=== PATIENT | female | born 1940 | race Caucasian/White ===

== ENCOUNTER → 2017-10-20 | Outpatient (CLI) | payer MEDICARE ==
[2017-10-20 17:30] LABS: HEMATOCRIT 39.3 % (36.0-47.0); HEMOGLOBIN 12.8 g/dl (12.0-16.0); MEAN CORPUSCULAR HEMOGLOBIN 29.8 pg (27.0-33.0); MEAN CORPUSCULAR HGB CONC 32.6 g/dl (32.0-36.5); MEAN CORPUSCULAR VOLUME 91.6 fl (80.0-96.0); PLATELET COUNT, AUTOMATED 329 10^3/uL (150-450); RED BLOOD COUNT 4.29 10^6/uL (4.00-5.40); RED CELL DISTRIBUTION WIDTH 13.5 % (11.5-14.5); WHITE BLOOD COUNT 6.9 10^3/uL (4.0-10.0)
[2017-10-20 17:58] LABS: ERYTHROCYTE SEDIMENTATION RATE 19 mm/hr (0-30)
[2017-10-20 18:14] LABS: C REACTIVE PROTEIN QUANTITATIV 0.41 MG/DL (0.00-0.30)
== END ==
LOC: M LAB 17:03
DX: H47.10 Unspecified papilledema (principal)
CPT/HCPCS: 86140

== ENCOUNTER → 2018-02-17 | Outpatient (REF) | payer MEDICARE ==
[2018-02-17 14:15] LABS: C REACTIVE PROTEIN QUANTITATIV < 0.30 MG/DL (0.00-0.30)
[2018-02-17 14:29] LABS: ERYTHROCYTE SEDIMENTATION RATE 11 mm/hr (0-30)
== END ==
LOC: M LABNEURO 11:05
DX: M31.6 Other giant cell arteritis (principal)
CPT/HCPCS: 86140

== ENCOUNTER → 2018-05-31 | Outpatient (REF) | payer MEDICARE | LOC: M LAB REF 18:02 | DX: C44.622 Squamous cell carcinoma of skin of right upper limb, including shoulder (principal) | CPT/HCPCS: 88305 ==

== ENCOUNTER → 2018-07-25 | Outpatient (CLI) | payer MEDICARE ==
--- NOTE | 2018-07-27 10:36 | DEXA ---
AP SPINE L1 - L4 1.308 0.9 2.7 LT FEMUR TOTAL 0.843 -1.3 0.6 LT NECK 0.790 -1.8 0.3 RT FEMUR TOTAL 0.855 -1.2 0.7 RT NECK 0.742 -2.1 0.1 TOTAL BODY TOTAL OTHER COMMENTS: Normal bone densitometry of the spine. There is low bone density of the hips. The density of the spine has decreased 2.2% since the initial exam on 05/10/2000. The spine density has decreased 0.1% since the most recent exam on 07/19/2016. The density of the left hip has decreased 8.8% since the initial exam on 05/10/2000. The density of the left hip has decreased 3.0% since the most recent exam on 07/19/2016. The density of the right hip has decreased 7.6% since the initial exam on 05/10/2000. The density of the right hip has decreased 3.9% since the most recent exam on 07/19/2016. FOLLOW-UP: Recommendation for the next bone density exam: 2 years. STEFANY
== END ==
LOC: M WHC 12:42
PROVIDERS: ATTEND Internal Medicine Endocrinology, Diabetes & Metabolism
DX: M85.89 Other specified disorders of bone density and structure, multiple sites (principal)

== ENCOUNTER 2018-10-09 13:19 | Outpatient (CLI) | payer MEDICARE ==
[~2018-10-09] VITALS: Ht 167.6 cm; Wt 63.5 kg
[2018-10-09 13:40] VITALS: BP 150/74
[2018-10-09] MEDS ORDERED: ZOLEDRONIC ACID 5 MG in APPROPRIATE DILUENT 1 EA IV ONE (14:30)
[2018-10-09] MEDS ORDERED: VITA1CAP7 PO (14:40)
[2018-10-09] MEDS ORDERED: RANI1TAB6 PO (14:41)
[2018-10-09] MEDS ORDERED: LANS15CA PO (14:43)
[2018-10-09] MEDS ORDERED: ESTR3TA PO (14:44)
[2018-10-09] MEDS ORDERED: DOCU240C9 PO (14:46)
[2018-10-09] MEDS ORDERED: MIRA3350 PO (14:48)
[2018-10-09] MEDS ORDERED: PROB250C PO (14:49)
[2018-10-09] MEDS ORDERED: VITA10002 PO (14:50)
[2018-10-09] MEDS ORDERED: [UNRECOGNIZED DRUG - OTHER] PO (14:51)
[2018-10-09] MEDS ORDERED: FLAX100012 PO (14:52)
[2018-10-09] MEDS ORDERED: CALC600T60 PO (14:52)
[2018-10-09] MEDS ORDERED: BIOT5TAB3 PO (15:01)
[2018-10-09] MEDS ORDERED: ATOR1TAB19 PO (15:02)
[2018-10-09 15:30] VITALS: BP 166/81
== END 2018-10-09 15:30 | disposition home or self-care (01) ==
LOC: M INFU 13:19
PROVIDERS: ATTEND Internal Medicine Endocrinology, Diabetes & Metabolism
DX: M85.89 Other specified disorders of bone density and structure, multiple sites (principal)
CPT/HCPCS: 96365; J3489

== ENCOUNTER → 2020-08-05 | Outpatient (CLI) | payer MEDICARE ==
[~2020-08-05] MED LIST: ATOR1TAB19 PO; BIOT5TAB3 PO; CALC600T60 PO; CYAN100049 PO; D-3-50003 PO; DOCU240C9 PO; ESTR3TA PO; FLAX100012 PO; LANS15CA PO; MIRA3350 PO; PROB250C PO; RANI-397 PO; [UNRECOGNIZED DRUG - OTHER] PO
--- NOTE | 2020-08-05 12:00 | DEXAMM ---
INDICATION: M81.0 AGE RELATED OSTEOPOROSIS. COMPARISON: Comparison studies dated July 25, 2018, July 19, 2016, and May 10, 2000.. TECHNIQUE: Bone density was measured using dual-energy x-ray absorptionmetry (DEXA). FINDINGS: AP SPINE L1-L4 BMD 1.303 g/cm2 Young Adult T-Score 0.9 Age Matched Z-Score 2.7. LT FEMUR, TOTAL BMD 0.828 g/cm2 Young Adult T-Score -1.4 Age Matched Z-Score 0.3. LT NECK BMD 0.752 g/cm2 Young Adult T-Score -2.1 Age Matched Z-Score 0.1. RT FEMUR, TOTAL BMD 0.842 g/cm2 Young Adult T-Score -1.3 Age Matched Z-Score 0.7. RT NECK BMD 0.747 g/cm2 Young Adult T-Score -2.1 Age Matched Z-Score 0 point. IMPRESSION: There is normal bone density of the spine. There is low bone density of the left hip. There is low bone density of the right hip. The density of the spine has decreased 2.5% since the initial exam on May 10, 2000. The density of the spine decreased 0.4% since most recent exam on July 25, 2018. The density of the left hip has decreased 10.4% since initial exam on May 10, 2000. The density of the left hip has decreased 1.8% since most recent exam on July 25, 2018. The density of the right hip has decreased 9.0% since the initial exam on May 10, 2000. The density of the right hip has decreased 1.5% since the most recent exam on July 25, 2018. FOLLOW-UP: Recommendation for the next bone density exam: 2 years. <Electronically signed by Lorne Davies > 08/05/20 [id number]
== END ==
LOC: M WHC 10:46
PROVIDERS: ATTEND Internal Medicine Endocrinology, Diabetes & Metabolism
DX: M81.0 Age-related osteoporosis without current pathological fracture (principal)

== ENCOUNTER 2020-09-25 15:04 | Outpatient (CLI) | payer MEDICARE ==
[~2020-09-25] VITALS: Ht 167.6 cm; Wt 61.3 kg
[~2020-09-25 15:04] MED LIST changes: +ZOLEDRONIC ACID 5 MG in IV 1 EA IV ONE
[2020-09-25 15:10] VITALS: BP 173/86
[2020-09-25] MEDS ORDERED: ZOLEDRONIC ACID 5 MG in IV 1 EA IV ONE (15:30)
[2020-09-25] MEDS ORDERED: PANT20TA6 PO (15:37)
[2020-09-25] MEDS ORDERED: AREDS PO (15:41)
[2020-09-25 16:00] VITALS: BP 168/88
== END 2020-09-25 16:00 | disposition home or self-care (01) ==
LOC: M INFU 15:04
PROVIDERS: ATTEND Internal Medicine Endocrinology, Diabetes & Metabolism
DX: M81.0 Age-related osteoporosis without current pathological fracture (principal); Z88.1 Allergy status to other antibiotic agents; Z88.6 Allergy status to analgesic agent
CPT/HCPCS: 96365; J3489

== ENCOUNTER → 2023-04-20 | Outpatient (CLI) | payer MEDICARE, OTHER ==
[~2023-04-20] MED LIST changes: +AREDS PO; +PANT20TA6 PO; -ZOLEDRONIC ACID 5 MG in IV 1 EA IV ONE
== END ==
LOC: M WHC 11:05
PROVIDERS: ATTEND Internal Medicine Endocrinology, Diabetes & Metabolism
DX: M81.0 Age-related osteoporosis without current pathological fracture (principal)